=== PATIENT | female | born 1965 | race Caucasian/White ===

== ENCOUNTER 2018-10-05 08:25 | Emergency (ER) | payer OTHER, BC ==
--- NOTE | 2018-10-05 08:42 | EDM.PDOC ---
ED HPI GENERAL MEDICAL PROBLEM - General Chief Complaint: Head Injury Stated Complaint: SLIPPED AND FELL Time Seen by Provider: 10/05/18 08:40 Source of Information: Reports: Patient History Limitations: Reports: No Limitations - History of Present Illness INITIAL COMMENTS - FREE TEXT/NARRATIVE: states slipped on ice patch fell onto face ? LOC no N/V but light headed dizzy, nose hurts with pounding headache without viz problems. Nose Pain Score (Numeric/FACES): 10 Left Knee Pain Score (Numeric/FACES): 2 - Related Data Allergies Allergy/AdvReac Type Severity Reaction Status Date / Time acetaminophen Allergy Cannot Verified 10/05/18 08:30 [From Tylenol-Codeine #3] Remember codeine Allergy Cannot Verified 10/05/18 08:30 [From Tylenol-Codeine #3] Remember Home Meds: Home Meds . 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 ED EXAM, HEAD INJURY - Physical Exam Exam: See Below Exam Limited By: No Limitations General Appearance: Alert, WD/WN, Mild Distress (tearful) Head: Facial Abrasions, Facial Ecchymosis. No: Cisse's Sign, Raccoon Eyes Nexus Criteria: No: Posterior, Midline Cervical Tenderness, Evidence of Intoxication, Altered Level of Consciousness, Focal Neurological Deficit, Painful Distraction Injuries Eyes: Bilateral Eye: PERRL (pupils ess ER @ 4mm) Ears: Hearing Grossly Normal Nose: Nasal Tenderness, Nasal Ecchymosis, Dried Blood, Other (puncture on ridge) Throat/Mouth: Normal Voice, No Airway Compromise Neck: Non-Tender, Full Range of Motion Respiratory: No Respiratory Distress Cardiovascular: Regular Rate, Rhythm GI/Abdominal Exam: Soft, Non-Tender Neurologic: No Motor/Sensory Deficits, Alert, Oriented x 3 Skin: Normal Color, Warm/Dry - Rita Coma Score Best Eye Response (Rita): (4) Open Spontaneously Best Verbal Response (Laurel): (5) Oriented Best Motor Response (Rita): (6) Obeys Commands Rita Total: 15 ED LACERATION/WOUND & YAZ PROC - Laceration/Wound Repair Nare Lac/wound length in cm: 0.5 (nasal ridge) Appearance: Superficial, Linear, Clean Skin Prep: Chlorhexidine (Hibiciens) Exploration/Debridement/Repair: Wound Explored, In a Bloodless Field, No Foreign Material Found Closed with: Wound Adhesive Sterile Dressing Applied: None Tetanus Status Addressed: Yes Complications: No Course - Vital Signs Last Recorded V/S: Last Vital Signs Temp 36.5 C 10/05/18 08:30 Pulse 61 10/05/18 09:36 Resp 17 10/05/18 09:36 BP 120/54 L 10/05/18 09:36 Pulse Ox 94 L 10/05/18 09:36 - Orders/Labs/Meds Orders: Active Orders 24 hr Category Date Time Status Acetaminophen/HYDROcodone [Froid 325-10 MG] Med 10/05/18 10:02 Once 1 tab PO ONETIME ONE - Re-Assessments/Exams Free Text/Narrative Re-Assessment/Exam: 10/05/18 10:03 results discussed with pt Departure - Departure Time of Disposition: 10:03 Disposition: Home, Self-Care 01 Condition: Good Clinical Impression: Concussion with less than 1 hour loss of consciousness, Contusion of nose, initial encounter Contusion of face Qualifiers: Encounter type: initial encounter Qualified Code(s): S00.83XA - Contusion of other part of head, initial encounter Laceration of nose without complication Qualifiers: Encounter type: initial encounter Qualified Code(s): S01.21XA - Laceration without foreign body of nose, initial encounter - Discharge Information Instructions: Head Injury, Adult, [id number] Forms: ED Department Discharge Additional Instructions: 1) rest as much as possible 2) ice to swelling 3) avoid solid foods for 24 hours 4) use tylenol for pain as needed 5) recheck if there is any change or concerns - My Orders Last 24 Hours: My Active Orders 10/05/18 10:02 Acetaminophen/HYDROcodone [Froid 325-10 MG] 1 tab PO ONETIME ONE - Assessment/Plan Last 24 Hours: My Active Orders 10/05/18 10:02 Acetaminophen/HYDROcodone [Froid 325-10 MG] 1 tab PO ONETIME ONE
--- NOTE | 2018-10-05 09:42 | CT ---
Clinical history: 53-year-old female with head and facial injury. Scan technique: Volume acquisition of data emergency unenhanced CT scan of the head and brain obtained while the patient was lying supine on the Siemens multi slice scanner [place], [place]. All data archived in the PACS system for storage, reformatting axial/sagittal/coronal planes and study (bone/brain windows). Interpretation: Negative exam. 1. Uniformly thick bony calvarium without sign of skull fracture, underlying brain contusion or abnormal extracerebral/and cranial epidural or subdural hematoma. 2. Symmetric clear pneumatization of the paranasal and mastoid sinuses. No sign of fracture, pathologic air-fluid level or abnormal mucoperiosteal inflammation. 3. Symmetric frank-white matter pattern. No supratentorial or posterior fossa mass lesion. No hydrocephalus. 4. No focal areas of ischemic infarct or signs of acute intracerebral/intraventricular/subarachnoid bleed. 5. Physiologic midline pineal and symmetric choroid plexus calcifications. Cerebellum and brainstem unremarkable.
--- NOTE | 2018-10-05 09:49 | CT ---
Clinical history: 53-year-old female emergency department complaining of recent head and facial injury. TECHNIQUE: Volume acquisition of data emergency unenhanced CT scan of the facial bones and soft tissues obtained while the patient was lying supine on the Siemens multi slice scanner [place], [place]. All data archived in the PACS system for storage, reformatting axial/sagittal/coronal planes and study. Interpretation: Negative exam. 1. Symmetric satisfactory dental occlusion (normal TMJs). 2. Nasal septum midline this patient with nonedematous nasal turbinates. No foreign bodies other than dental fillings. 3. No fractures/displacement of the nasal or anterior maxillary spines. 4. Symmetric clear pneumatization of the paranasal frontal, ethmoid, maxillary and sphenoid sinuses. Normal mastoid sinuses. 5. No frontal bone, orbital or zygomatic arch fractures. 6. No basal skull fracture and the first 3 cervical vertebra unremarkable except for some marginal C3-4 spondylosis.
[2018-10-05] MEDS ORDERED: Acetaminophen/HYDROcodone 325-10 MG Tab PO ONE (10:02)
== END 2018-10-05 10:14 | disposition home or self-care (01) ==
LOC: DL.ED 08:25
DX: S06.0X9A Concussion with loss of consciousness of unspecified duration, initial encounter (principal); S01.21XA Laceration without foreign body of nose, initial encounter; Z88.5 Allergy status to narcotic agent; W00.0XXA Fall on same level due to ice and snow, initial encounter
CPT/HCPCS: 12011; 70450; 70486; 99284; A9270